=== PATIENT | female | born 2000 | race African-American/Black ===

== ENCOUNTER 2023-09-01 08:52 | Emergency (ER) | payer MEDICAID, SELFPAY ==
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
[2023-09-01 08:59] VITALS: BP 131/84; PULSE 82; RESP 18; O2SAT 98
[2023-09-01 09:01] VITALS: BP 134/74; PULSE 60; O2SAT 100; BMI 34.1
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
[2023-09-01 10:23] LABS: MANUAL DIFF FLAG NO
--- NOTE | 2023-09-01 10:23 | PC.NURSE ---
20g IV placed in the right AC w/o difficulty - labs drawn and sent to lab. pt's partner bedside for support. pt awaiting CT and aware of plan of care at this time.
[2023-09-01 10:25] LABS: Basophils Absolute Auto 0.1 X10*3/uL (0.0-0.2); Basophils Percent Auto 0.6 % (0-2); Eosinophils Absolute Auto 0.1 X10*3/uL (0.0-0.4); Eosinophils Percent Auto 0.7 % (0-4); Hematocrit 41.7 % (37.0-47.0); Hemoglobin 14.2 g/dl (12.0-16.0); Imm Gran Abs Auto 0.01 X10*3/uL (0.00-0.03); Imm Gran Pct Auto 0.1 % (0.0-0.4); Lymphocytes Absolute Auto 2.4 X10*3/uL (1.2-4.9); Mean Corpuscular HGB Conc 34.1 g/dl (31.0-35.0); Mean Corpuscular Hemoglobin 27.9 pg (27.0-33.0); Mean Corpuscular Volume 81.9 fL (80.0-98.0); Mean Platelet Volume 9.8 fL (9.4-12.3); Monocytes Absolute Auto 0.4 X10*3/uL (0.1-1.2); Monocytes Percent Auto 4.9 % (2-11); Neutrophils Percent Auto 66.7 % (45-73); Platelet Count 243 X10*3/uL (160-400); Red Blood Count 5.09 X10*6/uL (4.20-5.50); Red Cell Distribution Width 12.5 % (11.0-16.0); White Blood Count 8.9 X10*3/uL (4.8-10.8)
[2023-09-01 10:35] LABS: Prothrombin Time 11.6 SEC (11.1-13.3)
[2023-09-01 10:54] LABS: Alanine Aminotransferase 16 U/L (0-31); Albumin Level 4.3 g/dL (3.5-5.0); Alkaline Phosphatase 89 U/L (39-117); Anion Gap 11 (12-20); Aspartate Amino Transferase 20 U/L (5-31); Bilirubin Direct 0.2 mg/dL (0.0-0.5); Blood Urea Nitrogen 9 mg/dL (9-16); Calcium 9.5 mg/dL (8.4-10.2); Carbon Dioxide 23 mmol/L (22-29); Chloride 109 mmol/L (96-108); Creatinine Clr Calc Pharmacy 110.4; Estimated Glomerular Filt Rate > 60; Glucose Random 107 mg/dL (60-115); HCG Quantitative < 2 mIU/mL; Lipase 27 U/L (8-78); Magnesium 2.1 mg/dL (1.6-2.6); Potassium 4.1 mmol/L (3.3-5.1); Sodium 139 mmol/L (135-145); Total Protein 7.5 g/dL (6.5-8.0)
--- NOTE | 2023-09-01 11:32 | PC.NURSE ---
pt to CT at this time.
[2023-09-01 12:00] VITALS: PULSE 59; RESP 18; O2SAT 100
--- NOTE | 2023-09-01 12:03 | PC.NURSE ---
pt returned from CT at this time. vss and up to date. pt still verbalizing 9/10 generalized body pain at this time. c-collar still in place. respirations remain even and unlabored. call souza placed within reach.
[2023-09-01] MEDS: iohexoL 350 MG/ML 100 ML INFUS..BTL 85 ML IV (12:25)
--- NOTE | 2023-09-01 13:26 | PC.NURSE ---
pt c/o 9/10 generalized body pain at this time and is requesting medication. will notify provider.
--- NOTE | 2023-09-01 13:38 | PC.NURSE ---
pt speaking w/ provider about results at this time.
[2023-09-01] MEDS: Cyclobenzaprine HCl 5 MG TABLET PO (13:46)
[2023-09-01 14:00] VITALS: BP 107/51; PULSE 57; RESP 16; O2SAT 98
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
[2023-09-01] MEDS: Ketorolac Tromethamine 15 MG/ML VIAL IVPUSH (15:39)
== END 2023-09-01 15:50 | disposition home or self-care (01) ==
PROVIDERS: Physician Assistant; Emergency Provider Emergency Medicine Emergency Medical Services; PCP Nurse Practitioner Family
DX: S13.4XXA Sprain of ligaments of cervical spine, initial encounter (principal); V43.62XA Car passenger injured in collision with other type car in traffic accident, initial encounter; M54.2 Cervicalgia; M54.9 Dorsalgia, unspecified; R10.11 Right upper quadrant pain; F12.90 Cannabis use, unspecified, uncomplicated; Y93.89 Activity, other specified; Y92.410 Unspecified street and highway as the place of occurrence of the external cause; Y99.9 Unspecified external cause status
CPT/HCPCS: 36415; 70450; 71260; 72125; 74177; 80048; 80076; 83690; 83735; 84702; 85025; 85610; 96374; 99284; 99285; J1885; Q9967